=== PATIENT | female | born 1970 | race Caucasian/White ===

== ENCOUNTER 2020-12-19 11:35 | Emergency (ER) | payer MEDICARE, MEDICAID ==
[~2020-12-19] VITALS: Ht 167.6 cm; Wt 67.3 kg
[2020-12-19 11:52] VITALS: BP 139/73
== END 2020-12-19 13:10 | disposition home or self-care (01) ==
LOC: ER 11:36
DX: Z02.89 Encounter for other administrative examinations (principal); K59.00 Constipation, unspecified; E78.00 Pure hypercholesterolemia, unspecified; Z88.0 Allergy status to penicillin; Z88.2 Allergy status to sulfonamides
CPT/HCPCS: 99281; 99282

== ENCOUNTER 2023-04-08 07:55 | Emergency (ER) | payer MEDICARE, MEDICAID ==
[~2023-04-08] VITALS: Ht 170.2 cm; Wt 67.3 kg
[2023-04-08 08:23] VITALS: BP 138/71
[2023-04-08] MEDS ORDERED: acetaminophen 325mg tablet PO ONE (09:50)
== END 2023-04-08 10:04 | disposition home or self-care (01) ==
LOC: ER 07:55
DX: S80.211A Abrasion, right knee, initial encounter (principal); M25.561 Pain in right knee; E78.00 Pure hypercholesterolemia, unspecified; Z88.0 Allergy status to penicillin; Z88.2 Allergy status to sulfonamides; W19.XXXA Unspecified fall, initial encounter; Y93.89 Activity, other specified; Y92.89 Other specified places as the place of occurrence of the external cause; Y99.8 Other external cause status
CPT/HCPCS: 73564; 73630; 99284; A6449

== ENCOUNTER 2023-04-10 08:42 | Emergency (ER) | payer MEDICARE, MEDICAID ==
[~2023-04-10] VITALS: Ht 167.6 cm; Wt 67.3 kg
[2023-04-10] MEDS ORDERED: acetaminophen 325mg tablet PO ONE (09:50)
[2023-04-10 11:26] LABS: CLARITY,URINE CLOUDY (Clear); COLOR,URINE YELLOW (Yellow); GLUCOSE, URINE NEGATIVE (Neg); KETONES,URINE TRACE mg/dl (Neg); LEUKOCYTE ESTERASE ,URINE SMALL (Neg); NITRITES, URINE POSITIVE (Neg); OCCULT BLOOD,URINE MODERATE (Neg); PROTEIN,URINE 100 mg/dl (Neg); UROBILINOGEN,URINE 0.2 E.U/dL (0.2-1.0)
[2023-04-10 11:29] LABS: UA COLLECTION TYPE OTHER
[2023-04-10] MEDS ORDERED: ondansetron 4mg rapidly disintigrating tab PO ONE (11:40)
[2023-04-10] MEDS ORDERED: ibuprofen tablet 400 MG TABLET PO ONE (11:40)
[2023-04-10] MEDS ORDERED: cephalexin 250mg capsule PO ONE (11:40)
[2023-04-10 11:41] LABS: SQUAMOUS EPITHELIAL CELL,UR FEW /LPF (FEW)
[2023-04-10] MEDS ORDERED: CEPH250T PO (11:44)
[2023-04-10] MEDS ORDERED: IBUP-1984 PO (11:44)
[2023-04-10 11:46] LABS: BACTERIA,URINE 4+ /HPF (Neg)
[2023-04-10 11:47] LABS: WBC CLUMPS,URINE FEW /HPF (NEGATIVE)
[2023-04-10 11:52] LABS: WBC,URINE TNTC /HPF (0-4)
[2023-04-10 11:53] LABS: TRANSITIONAL EPI CELLS,URINE FEW /HPF
== END 2023-04-10 12:29 | disposition home or self-care (01) ==
LOC: ER 08:42
DX: N39.0 Urinary tract infection, site not specified (principal); M25.561 Pain in right knee; S00.33XA Contusion of nose, initial encounter; E78.00 Pure hypercholesterolemia, unspecified; Z88.0 Allergy status to penicillin; Z88.2 Allergy status to sulfonamides
CPT/HCPCS: 70450; 72125; 81001; 87077; 87088; 87186; 99284